=== PATIENT | female | born 2005 | race Two or more races ===

== ENCOUNTER → 2024-10-08 | Outpatient (CLI) | payer OTHER ==
[2024-10-08 13:36] LABS: HEMATOCRIT 33.9 % (36.0-47.0); HEMOGLOBIN 11.3 g/dl (12.0-15.5); MEAN CORPUSCULAR HGB CONC 33.3 g/dl (32.0-36.5); MEAN CORPUSCULAR VOLUME 89.9 fl (80.0-96.0); PLATELET COUNT, AUTOMATED 247 10^3/uL (150-450); RED BLOOD COUNT 3.77 10^6/uL (4.00-5.40); WHITE BLOOD COUNT 7.8 10^3/uL (4.0-10.0)
[2024-10-08 14:06] LABS: FREE T4 1.26 NG/DL (0.83-1.43); THYROID STIMULATING HORMONE 1.851 uIU/ML (0.48-4.17)
[2024-10-08 14:29] LABS: Trichomonas vaginalis (AMP) NOT DETECTED (NEGATIVE)
[2024-10-08 14:36] LABS: HIV 1&2 SCREEN NEGATIVE (NEGATIVE)
[2024-10-08 14:45] LABS: HEPATITIS C VIRUS ABY INDEX 0.04 INDEX (<0.8)
[2024-10-08 14:53] LABS: GC DNA AMPLIFICATION NEGATIVE (NEGATIVE)
== END ==
LOC: M PLALAB 11:42
PROVIDERS: ATTEND Obstetrics & Gynecology
DX: E03.9 Hypothyroidism, unspecified (principal); O09.30 Supervision of pregnancy with insufficient antenatal care, unspecified trimester; O99.282 Endocrine, nutritional and metabolic diseases complicating pregnancy, second trimester; Z3A.00 Weeks of gestation of pregnancy not specified

== ENCOUNTER → 2024-10-13 | Outpatient (CLI) | payer OTHER | LOC: M RAD 13:05 | PROVIDERS: ATTEND Obstetrics & Gynecology | DX: O09.32 Supervision of pregnancy with insufficient antenatal care, second trimester (principal); O32.1XX0 Maternal care for breech presentation, not applicable or unspecified; Z3A.21 21 weeks gestation of pregnancy ==

== ENCOUNTER → 2024-12-31 | Outpatient (CLI) | payer OTHER | LOC: M RAD 15:58 | PROVIDERS: ATTEND Nurse Practitioner Family | DX: Z34.83 Encounter for supervision of other normal pregnancy, third trimester (principal); Z3A.32 32 weeks gestation of pregnancy ==

== ENCOUNTER → 2025-01-27 | Outpatient (CLI) | payer OTHER ==
[2025-01-27 19:29] LABS: FREE T4 1.34 NG/DL (0.89-1.76)
== END ==
LOC: M PLALAB 15:32
PROVIDERS: ATTEND Nurse Practitioner Family
DX: Z3A.36 36 weeks gestation of pregnancy (principal); E03.9 Hypothyroidism, unspecified

== ENCOUNTER 2025-02-28 19:27 | Inpatient (IN) | payer MEDICAID, OTHER ==
[~2025-02-28] VITALS: Ht 165.1 cm; Wt 93.3 kg
[2025-02-28 19:47] VITALS: BP 122/76
[2025-02-28] MEDS ORDERED: LEVO125T4 PO (20:06)
[2025-02-28] MEDS ORDERED: PRENTAB9 PO (20:07)
[2025-02-28] MEDS ORDERED: HOME MED LIST COMPLETE! XX SCH (20:10)
[2025-02-28] MEDS ORDERED: PENICILLIN G POTASSIUM 5 MU IV 5 MU in DEXTROSE 5% (D5W) MINI-BAG PLU 100 ML IV STA (20:22)
[2025-02-28] MEDS ORDERED: CARBOPROST TROMETHAMINE 250 MCG/ML AMP IM PRN (20:25)
[2025-02-28] MEDS ORDERED: LIDOCAINE 1% MDV 20 ML VIAL INFIL PRN (20:25)
[2025-02-28] MEDS ORDERED: TRANEXAMIC ACID INJection 1,000 MG in NS 100 ML IV PRN (20:25)
[2025-02-28] MEDS ORDERED: METHYLERGONOVINE MALEATE 0.2 MG/ML 1 ML VIAL IM PRN (20:25)
[2025-02-28] MEDS: miSOPROStol 50 MCG 1/2 TABLET PO SCH (21:06)
[2025-02-28 21:30] LABS: PLATELET COUNT, AUTOMATED 227 10^3/uL (150-450)
[2025-02-28 22:22] LABS: HIV 1&2 SCREEN NEGATIVE (NEGATIVE)
[2025-02-28 22:29] LABS: HEPATITIS C VIRUS ABY INDEX < 0.02 INDEX (<0.8)
[2025-03-01] VITALS (29 sets, daily range): BP systolic 101–133; BP diastolic 55–86; O2SAT 97
[2025-03-01] MEDS ORDERED: PEN G POT 3,000,000 UNIT/50 ML 3,000,000 UNIT in IV 1 EA IV SCH (00:25)
[2025-03-01] MEDS: BUTORPHANOL 2 MG/ML 1 ML VIAL IV ONE (05:34)
[2025-03-01] MEDS: LR 1,000 ML IV SCH ×2 (05:35→22:20)
[2025-03-01] MEDS ORDERED: NALOXONE INJ 0.4 MG/1 ML VIAL IV PRN ×3 (16:20→22:20)
[2025-03-01] MEDS ORDERED: diphenhydrAMINE 50 MG/ML VIAL IV PRN ×2 (16:20→22:20)
[2025-03-01] MEDS ORDERED: LR 500 ML IV PRN (16:20)
[2025-03-01] MEDS ORDERED: EPIDURAL/PCA KEYS XX PRN (16:20)
[2025-03-01] MEDS ORDERED: ONDANSETRON 4MG 2ML VIAL IV PRN ×3 (16:20→22:20)
[2025-03-01] MEDS: FENTANYL/ROPIVACAINE/NACL BAG 100 ML EPIDURAL SCH (16:44)
[2025-03-01] MEDS: LACTATED RINGER'S 1000 ML IV STA (17:00)
[2025-03-01] MEDS: OXYTOCIN DRIP 30 UNITS in IV 1 EA IV SCH ×2 (18:48→21:15)
[2025-03-01] MEDS ORDERED: MORPHINE PRES-FREE INJ 10 MG/10 ML VIAL As Ordered ONE (20:45)
[2025-03-01] MEDS ORDERED: KETOROLAC 30 MG/ML 1 ML VIAL As Ordered ONE (20:47)
[2025-03-01] MEDS ORDERED: LIDOCAINE 2% W/EPINEPHrine 20 ML VIAL **PRES FREE As Ordered ONE (20:47)
[2025-03-01] MEDS ORDERED: ONDANSETRON 4MG 2ML VIAL As Ordered ONE (20:47)
[2025-03-01] MEDS ORDERED: ACETAMINOPHEN 1000MG/100ML IV BAG As Ordered ONE (20:48)
[2025-03-01] MEDS ORDERED: BICITRA 30 ML SOLN UDC As Ordered ONE (20:48)
[2025-03-01] MEDS ORDERED: OXYTOCIN 30UNITS IN 0.9% NaCl 500ML IV BAG As Ordered ONE (20:48)
[2025-03-01] MEDS ORDERED: AZITHROMYCIN INJ 500 MG VIAL As Ordered ONE (20:51)
[2025-03-01] MEDS: AZITHROMYCIN INJ 500 MG, VIAL MATE ADAPTER 1 EACH in NS 250 ML IV ONE (20:53)
[2025-03-01] MEDS: BICITRA 30 ML SOLN UDC PO ONE (21:01)
[2025-03-01] MEDS ORDERED: RHOGAM 300MCG (1500IU) INJ IM SCH (21:15)
[2025-03-01] MEDS ORDERED: PERCOCET 5MG/325MG TAB PO PRN (21:15)
[2025-03-01] MEDS ORDERED: SIMETHICONE 80MG CHEW TAB PO PRN (21:15)
[2025-03-01] MEDS ORDERED: MOM 30 ML SUSPENSION UDC PO PRN (21:15)
[2025-03-01] MEDS ORDERED: CALCIUM CARBONATE 500 MG CHEW U/D PO PRN (21:15)
[2025-03-01] MEDS ORDERED: IBUPROFEN 800 MG TAB PO PRN (21:15)
[2025-03-01] MEDS ORDERED: PHENYLephrine 500MCG 5ML (100MCG/ML) SYRINGE As Ordered ONE (21:37)
[2025-03-01 21:49] LABS: CORD GAS ABE A 0.1; CORD GAS HCO3 A 29.3 MMOL/L; CORD GAS O2 SAT A 18.6 %; CORD GAS PCO2 A 65.8 mmHg; CORD GAS PH A 7.266 UNITS; CORD GAS PO2 A 13.0 mmHg; CORD GAS SBC A 22.4 MMOL/L; CORD GAS TCO2 A 31.3 MMOL/L
[2025-03-01 21:50] LABS: CORD GAS ABE V -1.5; CORD GAS HCO3 V 24.3 MMOL/L; CORD GAS O2 SAT V 65.5 %; CORD GAS PCO2 V 44.8 mmHg; CORD GAS PH V 7.353 UNITS; CORD GAS PO2 V 28.7 mmHg; CORD GAS SBC V 22.3 MMOL/L; CORD GAS TCO2 V 25.7 MMOL/L
[2025-03-01] MEDS ORDERED: MEPERIDINE 25 MG/ML 1 ML VIAL IV PRN (22:20)
[2025-03-01] MEDS ORDERED: **NOTE PATIENT COMMENT** MISC XX SCH (22:20)
[2025-03-02] VITALS (9 sets, daily range): BP systolic 106–123; BP diastolic 54–74; O2SAT 96–99
[2025-03-02] MEDS: DOCUSATE SODIUM 100 MG CAPSULE PO SCH (00:14)
[2025-03-02] MEDS: SLF 3 ML SYR IV SCH (00:15)
[2025-03-02] MEDS: ceFAZolin SODIUM 2 GM in DEXTROSE 5% (D5W) ADV/MINI-BAG 50 ML IV ONE (00:15)
[2025-03-02] MEDS: LR 1,000 ML IV SCH (01:43)
[2025-03-02] MEDS: KETOROLAC 30 MG/ML 1 ML VIAL IV SCH (02:52)
[2025-03-02] MEDS: PRENATAL VITAMINS CHEWABLE TABLET PO SCH (08:22)
[2025-03-02] MEDS: FERROUS SULFATE 325 MG TAB PO SCH (08:22)
[2025-03-02 08:32] LABS: PLATELET COUNT, AUTOMATED 143 10^3/uL (150-450)
[2025-03-02 12:15] LABS: CALCIUM LEVEL 7.5 MG/DL (8.5-10.1); CARBON DIOXIDE LEVEL 24 MMOL/L (20-31); CHLORIDE LEVEL 107 MMOL/L (98-107); POTASSIUM SERUM 3.1 MMOL/L (3.5-5.1); SODIUM LEVEL 138 MMOL/L (136-145)
[2025-03-02 12:18] LABS: ALT/SGPT 10 U/L (7.0-40); AST/SGOT 22 U/L (<34); CREATININE FOR GFR 0.64 MG/DL (0.55-1.30); GLOMERULAR FILTRATION RATE > 90.0 (>60)
[2025-03-02] MEDS: IRON SUCROSE 100 MG/5 ML VIAL IV SCH (12:31)
[2025-03-02] MEDS: IBUPROFEN 800 MG TAB PO SCH (22:22)
[2025-03-03] VITALS (9 sets, daily range): BP systolic 111–118; BP diastolic 55–75; TEMP 97.7–98.3; O2SAT 97–100
[2025-03-03 07:57] LABS: PLATELET COUNT, AUTOMATED 157 10^3/uL (150-450)
[2025-03-03] MEDS: MEASLES,MUMPS,RUBELLA VACCINE INJ (MMR-II) SC.IMMUN ONE (09:00)
[2025-03-03] MEDS ORDERED: COLA100C5 PO (10:03)
[2025-03-03] MEDS ORDERED: IBUP80TA PO (10:03)
[2025-03-03] MEDS ORDERED: FERR1TAB8 PO (10:03)
[2025-03-03] MEDS: diphenhydrAMINE 50 MG/ML VIAL IV ONE (12:13)
[2025-03-03] MEDS: ACETAMINOPHEN 500 MG TAB PO ONE (12:13)
[2025-03-03] MEDS: PERCOCET 5MG/325MG TAB PO PRN (18:15)
[2025-03-04 06:20] VITALS: BP 112/68; O2SAT 98
[2025-03-04 08:24] LABS: PLATELET COUNT, AUTOMATED 171 10^3/uL (150-450)
== END 2025-03-04 13:20 | disposition home or self-care (01) | DRG 540 ==
LOC: M LDI 19:27 → M OBS 03-01 23:34
PROVIDERS: ADMIT Obstetrics & Gynecology; ATTEND Obstetrics & Gynecology
PROC: 3E0P7GC Introduction of Other Therapeutic Substance into Female Reproductive, Via Natural or Artificial Opening (ICD-10-PCS; 2025-02-28)
PROC: 10D00Z1 Extraction of Products of Conception, Low, Open Approach (ICD-10-PCS; principal; 2025-03-01 20:41)
PROC: 30233N1 Transfusion of Nonautologous Red Blood Cells into Peripheral Vein, Percutaneous Approach (ICD-10-PCS; 2025-03-03)
DX: O48.0 Post-term pregnancy (principal); Z37.0 Single live birth; Z3A.41 41 weeks gestation of pregnancy; O76 Abnormality in fetal heart rate and rhythm complicating labor and delivery; O77.0 Labor and delivery complicated by meconium in amniotic fluid; D64.9 Anemia, unspecified; O99.02 Anemia complicating childbirth